=== PATIENT | female | born 1960 | race Caucasian/White ===

== ENCOUNTER 2023-10-27 17:40 | Emergency (ER) | payer SELFPAY ==
[~2023-10-27] VITALS: Ht 165.1 cm; Wt 78.0 kg
[2023-10-27 17:41] VITALS: TEMP 96.5
[2023-10-27] MEDS: methocarbamoL 500 MG TAB PO ONE (20:41)
[2023-10-27] MEDS: predniSONE 20 MG TAB PO ONE (20:41)
[2023-10-27] MEDS: KETOROLAC 60MG 2ML VIAL IM ONE (20:42)
[2023-10-27] MEDS ORDERED: PRED20TA PO (21:29)
[2023-10-27] MEDS ORDERED: IBUP-1022 PO (21:29)
[2023-10-27] MEDS ORDERED: METH-1164 PO (21:29)
[2023-10-27 21:36] VITALS: BP 134/59; O2SAT 96
== END 2023-10-27 21:37 | disposition home or self-care (01) ==
LOC: M ED 17:40
DX: M54.42 Lumbago with sciatica, left side (principal); E11.9 Type 2 diabetes mellitus without complications; I10 Essential (primary) hypertension; E78.5 Hyperlipidemia, unspecified; Z88.0 Allergy status to penicillin; Z79.1 Long term (current) use of non-steroidal anti-inflammatories (NSAID); Z79.52 Long term (current) use of systemic steroids; Z79.899 Other long term (current) drug therapy
CPT/HCPCS: 72110; 73502; 96372; 99283; J1885; J7512

== ENCOUNTER 2023-12-18 09:25 | Inpatient (IN) | payer MEDICAID ==
[~2023-12-18] VITALS: Ht 162.6 cm; Wt 81.3 kg
[~2023-12-18 09:25] MED LIST: IBUP-1022 PO; METH-1164 PO; PRED20TA PO
[2023-12-18] MEDS: ONDANSETRON 4MG 2ML VIAL IV ONE (09:39)
[2023-12-18] MEDS: MORPHINE 4 MG/ML 1ML VIAL IV PRN (09:40)
[2023-12-18 10:01] LABS: HEMATOCRIT 35.6 % (36.0-47.0); HEMOGLOBIN 11.1 g/dl (12.0-15.5); MEAN CORPUSCULAR HGB CONC 31.2 g/dl (32.0-36.5); MEAN CORPUSCULAR VOLUME 73.7 fl (80.0-96.0); PLATELET COUNT, AUTOMATED 187 10^3/uL (150-450); RED BLOOD COUNT 4.83 10^6/uL (4.00-5.40); WHITE BLOOD COUNT 6.9 10^3/uL (4.0-10.0)
[2023-12-18 10:13] LABS: INR 0.96; PROTHROMBIN TIME 13.1 SECONDS (12.5-14.5)
[2023-12-18 10:25] LABS: BLOOD UREA NITROGEN 29 MG/DL (9-23); CALCIUM LEVEL 10.4 MG/DL (8.3-10.6); CARBON DIOXIDE LEVEL 28 MMOL/L (20-31); CHLORIDE LEVEL 106 MMOL/L (98-107); CREATININE FOR GFR 0.83 MG/DL (0.55-1.30); GLOMERULAR FILTRATION RATE > 60.0 (>45); GLUCOSE, FASTING 142 MG/DL (74-106); POTASSIUM SERUM 3.7 MMOL/L (3.5-5.1); SODIUM LEVEL 140 MMOL/L (136-145)
[2023-12-18] MEDS ORDERED: DEXTROSE 50% 50ML SYRINGE IV PRN (10:50)
[2023-12-18] MEDS ORDERED: GLUCAGON INJ 1MG VIAL SC PRN (10:50)
[2023-12-18] MEDS ORDERED: GLUCOSE 4 GM CHEW PO PRN (10:50)
[2023-12-18] MEDS ORDERED: NALOXONE INJ 0.4MG/1ML VIAL IV PRN (10:50)
[2023-12-18] MEDS ORDERED: ONDANSETRON 4MG 2ML VIAL IV PRN (10:50)
[2023-12-18] MEDS ORDERED: METF-839 PO (11:09)
[2023-12-18] MEDS ORDERED: TRIA37.577 PO (11:09)
[2023-12-18] MEDS ORDERED: FOLI1TAB11 PO (11:09)
[2023-12-18] MEDS ORDERED: LISI40TA4 PO (11:09)
[2023-12-18] MEDS ORDERED: HYDR-3363 PO (11:09)
[2023-12-18] MEDS ORDERED: FLUO-365 PO (11:09)
[2023-12-18] MEDS ORDERED: CETI-24 PO (11:09)
[2023-12-18] MEDS ORDERED: SIMV40TA20 PO (11:09)
[2023-12-18] MEDS ORDERED: FLUO40CA PO (11:09)
[2023-12-18] MEDS ORDERED: ROPI5TAB19 PO (11:09)
[2023-12-18] MEDS ORDERED: AMLO1TAB24 PO (11:09)
[2023-12-18] MEDS: KETOROLAC 30 MG/ML 1ML VIAL IV ONE (11:10)
[2023-12-18] MEDS: MORPHINE 10 MG/ML 1ML VIAL IV PRN (11:11)
[2023-12-18] MEDS ORDERED: HOME MED LIST COMPLETE! XX SCH (11:15)
[2023-12-18] MEDS: NS 1,000 ML IV SCH (11:20)
[2023-12-18] MEDS: ACETAMINOPHEN *IV* 1,000 MG in IV 1 EA IV ONE (11:20)
[2023-12-18 12:00] VITALS: BP 138/82; TEMP 97.7; O2SAT 94
[2023-12-18 19:56] VITALS: BP 120/65; TEMP 97.7; O2SAT 94
[2023-12-18] MEDS: INSULIN LISPRO (NovoLOG) PER UNIT SC SCH (20:23)
[2023-12-18] MEDS: RAMELTEON 8 MG TAB (ROZEREM) PO ONE (21:47)
[2023-12-19 03:51] VITALS: BP 110/62; TEMP 97.9; O2SAT 90
[2023-12-19 06:11] LABS: BASO % 0.5 % (0.0-1.0); EOS # 0.2 10^3/uL (0.0-0.5); EOS % 1.9 % (0.0-3.0); HEMATOCRIT 30.2 % (36.0-47.0); LYMPH # 0.9 10^3/uL (1.5-5.0); LYMPH % 11.3 % (24.0-44.0); MEAN CORPUSCULAR HEMOGLOBIN 22.7 pg (27.0-33.0); MEAN CORPUSCULAR HGB CONC 30.1 g/dl (32.0-36.5); MEAN CORPUSCULAR VOLUME 75.3 fl (80.0-96.0); MONO # 0.6 10^3/uL (0.0-0.8); MONO % 7.3 % (2.0-8.0); NEUTROPHILS # 6.1 10^3/uL (1.5-8.5); NEUTROPHILS % 78.7 % (36.0-66.0); PLATELET COUNT, AUTOMATED 135 10^3/uL (150-450); RED BLOOD COUNT 4.01 10^6/uL (4.00-5.40); WHITE BLOOD COUNT 7.7 10^3/uL (4.0-10.0)
[2023-12-19 06:15] LABS: HEMOGLOBIN 9.1 g/dl (12.0-15.5)
[2023-12-19 06:40] LABS: HEMOGLOBIN A1c 5.8 % (4.0-6.0); THYROID STIMULATING HORMONE 1.129 uIU/ML (0.55-4.78); THYROXINE (T4) 10.5 UG/DL (4.5-10.9)
[2023-12-19 06:46] LABS: BLOOD UREA NITROGEN 23 MG/DL (9-23); CARBON DIOXIDE LEVEL 30 MMOL/L (20-31); CHLORIDE LEVEL 103 MMOL/L (98-107); CHOLESTEROL LEVEL 136 MG/DL (<200); CHOLESTEROL RISK RATIO 2.65 (<5); CREATININE FOR GFR 0.81 MG/DL (0.55-1.30); GLOMERULAR FILTRATION RATE > 60.0 (>45); GLUCOSE, FASTING 126 MG/DL (74-106); HDL CHOLESTEROL 51.3 MG/DL (>40); LDL CHOLESTEROL 65.1 MG/DL (<100); NON-HDL-C 84.7 MG/DL; POTASSIUM SERUM 3.8 MMOL/L (3.5-5.1); SODIUM LEVEL 139 MMOL/L (136-145); T UPTAKE 37.9 % (22.5-37.0); TRIGLYCERIDES LEVEL 98 MG/DL (<150)
[2023-12-19] MEDS: PERCOCET 5MG/325MG TAB PO ONE (07:29)
[2023-12-19] MEDS: INSULIN LISPRO (NovoLOG) PER UNIT SC SCH (07:29)
[2023-12-19] MEDS: NS 1,000 ML IV SCH ×2 (07:34→22:15)
[2023-12-19 12:00] VITALS: BP 114/67; TEMP 97.2; O2SAT 97
[2023-12-19] MEDS ORDERED: PERCOCET 5MG/325MG TAB PO PRN (16:00)
[2023-12-19] MEDS: ceFAZolin 2 GM/D5W 50 ML IV BAG As Ordered ONE (17:40)
[2023-12-19] MEDS: TRANEXAMIC ACID 100 MG/ML 10ML VIAL As Ordered ONE (17:49)
[2023-12-19] MEDS: VANCOMYCIN 1000MG/20ML VIAL As Ordered ONE (18:36)
[2023-12-19] MEDS ORDERED: oxyCODONE 5MG TAB PO PRN (22:15)
[2023-12-19] MEDS ORDERED: fentaNYL 100 MCG/2 ML INJECTION IV PRN (22:15)
[2023-12-19] MEDS ORDERED: ONDANSETRON 4MG 2ML VIAL IV PRN (22:15)
[2023-12-19 23:25] LABS: HEMATOCRIT 25.5 % (36.0-47.0); HEMOGLOBIN 7.8 g/dl (12.0-15.5); MEAN CORPUSCULAR HEMOGLOBIN 23.4 pg (27.0-33.0); MEAN CORPUSCULAR HGB CONC 30.6 g/dl (32.0-36.5); MEAN CORPUSCULAR VOLUME 76.6 fl (80.0-96.0); PLATELET COUNT, AUTOMATED 120 10^3/uL (150-450); RED BLOOD COUNT 3.33 10^6/uL (4.00-5.40); WHITE BLOOD COUNT 8.6 10^3/uL (4.0-10.0)
[2023-12-19] MEDS: HYDROMORPHONE HCL 0.5 MG/ 0.5 ML SYRINGE IV PRN (23:25)
[2023-12-19 23:50] VITALS: BP_SYST 107; BP_DIAS 54; BP_DIAS 56; TEMP 97.5; O2SAT 94
[2023-12-20] VITALS (14 sets, daily range): BP systolic 90–122; BP diastolic 42–99; TEMP 97–97.9; O2SAT 88–98
[2023-12-20] MEDS: LR 1,000 ML IV SCH (00:58)
[2023-12-20] MEDS: PERCOCET 5MG/325MG TAB PO PRN (01:41)
[2023-12-20] MEDS: NS 500 ML IV ONE (05:18)
[2023-12-20] MEDS: ASPIRIN 81MG ENTERIC TABLET PO SCH (08:32)
[2023-12-20] MEDS ORDERED: oxyCODONE 5MG TAB PO PRN ×2 (08:55)
[2023-12-20] MEDS ORDERED: FLUoxetine 20MG CAP PO SCH (09:00)
[2023-12-20] MEDS: ACETAMINOPHEN 500 MG TAB PO SCH (10:02)
[2023-12-20] MEDS: SENOKOT S TAB PO SCH (10:03)
[2023-12-20] MEDS: FLUoxetine 20MG CAP PO SCH (10:03)
[2023-12-20] MEDS: CETIRIZINE (ZyrTEC) 10 MG TAB PO SCH (10:03)
[2023-12-20] MEDS: FOLIC ACID 1MG TAB PO SCH (10:03)
[2023-12-20] MEDS: MIRALAX *UNIT DOSE* 17GM PACKET PO SCH (10:04)
[2023-12-20] MEDS: KETOROLAC 30 MG/ML 1ML VIAL IV SCH (11:12)
[2023-12-20 14:37] LABS: HEMATOCRIT 27.2 % (36.0-47.0); HEMOGLOBIN 8.7 g/dl (12.0-15.5); MEAN CORPUSCULAR HEMOGLOBIN 24.7 pg (27.0-33.0); MEAN CORPUSCULAR VOLUME 77.3 fl (80.0-96.0); PLATELET COUNT, AUTOMATED 108 10^3/uL (150-450); RED BLOOD COUNT 3.52 10^6/uL (4.00-5.40); WHITE BLOOD COUNT 6.6 10^3/uL (4.0-10.0)
[2023-12-20] MEDS: rOPINIRole 0.25 MG TAB(REQUIP) PO SCH (21:12)
[2023-12-20] MEDS: SIMVASTATIN 40 MG TAB PO SCH (21:13)
[2023-12-21 00:32] VITALS: BP 103/53; TEMP 97; O2SAT 98
[2023-12-21 05:18] VITALS: BP 107/53; TEMP 97.3; O2SAT 98
[2023-12-21 06:36] LABS: BASO % 0.3 % (0.0-1.0); EOS # 0.3 10^3/uL (0.0-0.5); EOS % 4.6 % (0.0-3.0); HEMATOCRIT 25.9 % (36.0-47.0); HEMOGLOBIN 8.1 g/dl (12.0-15.5); LYMPH # 0.8 10^3/uL (1.5-5.0); LYMPH % 12.3 % (24.0-44.0); MEAN CORPUSCULAR HEMOGLOBIN 23.9 pg (27.0-33.0); MEAN CORPUSCULAR HGB CONC 31.3 g/dl (32.0-36.5); MEAN CORPUSCULAR VOLUME 76.4 fl (80.0-96.0); MONO # 0.5 10^3/uL (0.0-0.8); MONO % 7.6 % (2.0-8.0); NEUTROPHILS # 4.9 10^3/uL (1.5-8.5); NEUTROPHILS % 74.7 % (36.0-66.0); PLATELET COUNT, AUTOMATED 114 10^3/uL (150-450); RED BLOOD COUNT 3.39 10^6/uL (4.00-5.40); WHITE BLOOD COUNT 6.6 10^3/uL (4.0-10.0)
[2023-12-21 06:59] LABS: BLOOD UREA NITROGEN 21 MG/DL (9-23); CALCIUM LEVEL 9.1 MG/DL (8.3-10.6); CARBON DIOXIDE LEVEL 29 MMOL/L (20-31); CHLORIDE LEVEL 107 MMOL/L (98-107); CREATININE FOR GFR 0.71 MG/DL (0.55-1.30); GLOMERULAR FILTRATION RATE > 60.0 (>45); GLUCOSE, FASTING 126 MG/DL (74-106); SODIUM LEVEL 141 MMOL/L (136-145)
[2023-12-21] MEDS: FUROSEMIDE 40MG/4ML VIAL IV ONE (08:00)
[2023-12-21 11:40] VITALS: BP 130/72; TEMP 97.5; O2SAT 97
[2023-12-21 19:58] VITALS: BP 143/76; TEMP 96.8; O2SAT 91
[2023-12-22 04:00] VITALS: BP 147/75; TEMP 97.3; O2SAT 93
[2023-12-22 06:04] LABS: BASO % 0.5 % (0.0-1.0); EOS # 0.2 10^3/uL (0.0-0.5); EOS % 3.2 % (0.0-3.0); HEMATOCRIT 28.2 % (36.0-47.0); HEMOGLOBIN 8.9 g/dl (12.0-15.5); LYMPH # 0.9 10^3/uL (1.5-5.0); LYMPH % 14.1 % (24.0-44.0); MEAN CORPUSCULAR HEMOGLOBIN 24.3 pg (27.0-33.0); MEAN CORPUSCULAR HGB CONC 31.6 g/dl (32.0-36.5); MONO # 0.4 10^3/uL (0.0-0.8); MONO % 6.6 % (2.0-8.0); NEUTROPHILS # 4.7 10^3/uL (1.5-8.5); NEUTROPHILS % 75.3 % (36.0-66.0); PLATELET COUNT, AUTOMATED 161 10^3/uL (150-450); RED BLOOD COUNT 3.66 10^6/uL (4.00-5.40); WHITE BLOOD COUNT 6.2 10^3/uL (4.0-10.0)
[2023-12-22 06:32] LABS: BLOOD UREA NITROGEN 24 MG/DL (9-23); CALCIUM LEVEL 9.4 MG/DL (8.3-10.6); CARBON DIOXIDE LEVEL 30 MMOL/L (20-31); CHLORIDE LEVEL 106 MMOL/L (98-107); CREATININE FOR GFR 0.68 MG/DL (0.55-1.30); GLOMERULAR FILTRATION RATE > 60.0 (>45); GLUCOSE, FASTING 126 MG/DL (74-106); POTASSIUM SERUM 3.7 MMOL/L (3.5-5.1); SODIUM LEVEL 143 MMOL/L (136-145)
[2023-12-22 12:00] VITALS: BP 121/64; TEMP 97.6; O2SAT 97
[2023-12-22] MEDS ORDERED: SENN-52 PO (15:25)
[2023-12-22] MEDS ORDERED: ASPI81TAEC PO (15:25)
[2023-12-22] MEDS ORDERED: OXYC-517 PO (15:25)
[2023-12-22] MEDS ORDERED: NAPR-1405 PO (15:25)
[2023-12-22] MEDS ORDERED: MIRA33506 PO (15:25)
[2023-12-22] MEDS ORDERED: ACET-683 PO (15:25)
[2023-12-22] MEDS: BISACODYL 10MG SUPP PR ONE (15:49)
== END 2023-12-22 16:00 | DRG 308 ==
LOC: M ED 09:25 → EDBD 09:25 → M ED INP 10:44 → M MS5PR 12:00
PROVIDERS: ADMIT General Practice; ATTEND Internal Medicine Nephrology
PROC: 0QS604Z Reposition Right Upper Femur with Internal Fixation Device, Open Approach (ICD-10-PCS; principal; 2023-12-18)
PROC: 30233N1 Transfusion of Nonautologous Red Blood Cells into Peripheral Vein, Percutaneous Approach (ICD-10-PCS; 2023-12-19)
DX: S72.331A Displaced oblique fracture of shaft of right femur, initial encounter for closed fracture (principal); D69.6 Thrombocytopenia, unspecified; M97.11XA Periprosthetic fracture around internal prosthetic right knee joint, initial encounter; M41.9 Scoliosis, unspecified; I10 Essential (primary) hypertension; E11.9 Type 2 diabetes mellitus without complications; D62 Acute posthemorrhagic anemia; F17.290 Nicotine dependence, other tobacco product, uncomplicated; W18.09XA Striking against other object with subsequent fall, initial encounter; Y92.018 Other place in single-family (private) house as the place of occurrence of the external cause; Y93.89 Activity, other specified; Y99.8 Other external cause status; E78.5 Hyperlipidemia, unspecified; G25.81 Restless legs syndrome; Z96.651 Presence of right artificial knee joint; Z79.84 Long term (current) use of oral hypoglycemic drugs; Z79.899 Other long term (current) drug therapy; Z88.0 Allergy status to penicillin

== ENCOUNTER 2023-12-22 15:41 | Inpatient (IN) | payer MEDICAID ==
[~2023-12-22] VITALS: Ht 162.6 cm; Wt 81.5 kg
[~2023-12-22 15:41] MED LIST changes: +ACET-683 PO; +ACETAMINOPHEN 1000MG/100ML IV BAG As Ordered ONE; +AMLO1TAB24 PO; +ASPI81TAEC PO; +CETI-24 PO; +FLUO-365 PO; +FLUO40CA PO; +FOLI1TAB11 PO; +GLYCOPYRROLATE INJ 0.2 MG/ML 2 ML VIAL As Ordered ONE; +HYDR-3363 PO; +HYDROmorphone HCL 2MG/ML 1ML VIAL As Ordered ONE; +KETOROLAC 60MG 2ML VIAL As Ordered ONE; +LABETALOL 100MG/20ML VIAL As Ordered ONE; +LIDOCAINE 2% 100MG/5ML SDV (FOR ANES.) As Ordered ONE; +LISI40TA4 PO; +METF-839 PO; +MIDAZOLAM INJ 2MG/2ML VIAL As Ordered ONE; +MIRA33506 PO; +NAPR-1405 PO; +ONDANSETRON 4MG 2ML VIAL As Ordered ONE; +OXYC-517 PO; +PHENYLephrine 500MCG 5ML (100MCG/ML) SYRINGE As Ordered ONE; +ROCURONIUM BROMIDE 50MG/5ML VIAL As Ordered ONE; +ROPI5TAB19 PO; +SENN-52 PO; +SIMV40TA20 PO; +SUGAMMADEX SODIUM 500 MG/5 ML VIAL (BRIDION) As Ordered ONE; +TRIA37.577 PO; +ePHEDrine SULFATE 25 MG/5 ML(5MG/ML) SYRINGE As Ordered ONE; +fentaNYL 100 MCG/2 ML INJECTION As Ordered ONE; +propofoL 200 MG/20 ML VIAL As Ordered ONE
[2023-12-22 16:00] VITALS: BP 164/78; TEMP 97.6; O2SAT 99
[2023-12-22] MEDS ORDERED: IBUPROFEN 400MG TAB PO PRN (16:20)
[2023-12-22 20:30] VITALS: BP 155/70; TEMP 97.6; O2SAT 96
[2023-12-22] MEDS: ACETAMINOPHEN 500 MG TAB PO SCH (20:50)
[2023-12-22] MEDS: SENOKOT S TAB PO SCH (20:50)
[2023-12-22] MEDS: SIMVASTATIN 40 MG TAB PO SCH (20:50)
[2023-12-22] MEDS: rOPINIRole 0.25 MG TAB(REQUIP) PO SCH (20:50)
[2023-12-22] MEDS: ASPIRIN 81MG ENTERIC TABLET PO SCH (20:51)
[2023-12-22] MEDS ORDERED: HOME MED LIST COMPLETE! XX SCH (21:05)
[2023-12-22] MEDS: NAPROXEN 250 MG TAB PO SCH (22:07)
[2023-12-22] MEDS: metFORMIN (GLUCOPHAGE) 500MG TAB PO SCH (22:08)
[2023-12-23 04:00] VITALS: BP 156/66; TEMP 97.6; O2SAT 96
[2023-12-23] MEDS: amLODIPine 5 MG TAB PO SCH (07:33)
[2023-12-23] MEDS: FOLIC ACID 1MG TAB PO SCH (07:33)
[2023-12-23] MEDS: DYAZIDE 37.5/25 CAP (TRIAM/HCTZ) PO SCH (07:34)
[2023-12-23] MEDS: FLUoxetine 20MG CAP PO SCH (07:34)
[2023-12-23] MEDS: CETIRIZINE (ZyrTEC) 10 MG TAB PO SCH (07:35)
[2023-12-23] MEDS: MIRALAX *UNIT DOSE* 17GM PACKET PO SCH (07:38)
[2023-12-23 12:00] VITALS: BP 164/78; TEMP 97.8; O2SAT 99
[2023-12-23] MEDS: ACYCLOVIR 200 MG CAPSULE PO SCH (16:12)
[2023-12-23 20:00] VITALS: BP 166/77; TEMP 97; O2SAT 97
[2023-12-23] MEDS: oxyCODONE 5MG TAB PO PRN (20:18)
[2023-12-24 03:30] VITALS: BP 160/80; TEMP 96.2; O2SAT 99
[2023-12-24] MEDS: oxyCODONE 5MG TAB PO PRN (03:32)
[2023-12-24 04:00] VITALS: BP 156/70
[2023-12-24 12:00] VITALS: BP 147/73; TEMP 96.3; O2SAT 96
[2023-12-24 20:00] VITALS: BP 150/72; TEMP 97.4; O2SAT 97
[2023-12-25 04:00] VITALS: BP 154/69; TEMP 96.1; O2SAT 95
[2023-12-25 12:00] VITALS: BP 150/67; TEMP 97; O2SAT 96
[2023-12-25] MEDS: ONDANSETRON 4MG TAB PO PRN (16:53)
[2023-12-25 19:41] VITALS: BP 137/65; TEMP 97.4; O2SAT 94
[2023-12-26 04:05] VITALS: BP 141/63; TEMP 96.9; O2SAT 94
[2023-12-26 12:00] VITALS: BP 141/65; TEMP 96.9; O2SAT 97
[2023-12-26 20:17] VITALS: BP 140/65; TEMP 96.7; O2SAT 95
[2023-12-26] MEDS: DOCUSATE SODIUM 100MG CAPSULE PO SCH (20:30)
[2023-12-27 04:58] VITALS: BP 113/59; TEMP 96.4; O2SAT 97
[2023-12-27 06:33] LABS: BASO % 0.5 % (0.0-1.0); EOS # 0.2 10^3/uL (0.0-0.5); EOS % 4.1 % (0.0-3.0); HEMOGLOBIN 8.3 g/dl (12.0-15.5); LYMPH # 1.2 10^3/uL (1.5-5.0); MEAN CORPUSCULAR HEMOGLOBIN 24.1 pg (27.0-33.0); MEAN CORPUSCULAR HGB CONC 30.7 g/dl (32.0-36.5); MEAN CORPUSCULAR VOLUME 78.3 fl (80.0-96.0); MONO # 0.6 10^3/uL (0.0-0.8); MONO % 11.5 % (2.0-8.0); NEUTROPHILS # 3.4 10^3/uL (1.5-8.5); NEUTROPHILS % 60.1 % (36.0-66.0); PLATELET COUNT, AUTOMATED 258 10^3/uL (150-450); RED BLOOD COUNT 3.45 10^6/uL (4.00-5.40); WHITE BLOOD COUNT 5.6 10^3/uL (4.0-10.0)
[2023-12-27] MEDS: PANTOPRAZOLE 20 MG TAB PO SCH (06:37)
[2023-12-27 06:38] LABS: BLOOD UREA NITROGEN 16 MG/DL (9-23); CALCIUM LEVEL 9.3 MG/DL (8.3-10.6); CARBON DIOXIDE LEVEL 31 MMOL/L (20-31); CHLORIDE LEVEL 105 MMOL/L (98-107); GLOMERULAR FILTRATION RATE > 60.0 (>45); GLUCOSE, FASTING 95 MG/DL (74-106); SODIUM LEVEL 139 MMOL/L (136-145)
[2023-12-27] MEDS: SENNA 8.6 MG TAB (SENOKOT) PO SCH (08:59)
[2023-12-27 12:00] VITALS: BP 136/60; TEMP 97.4; O2SAT 98
[2023-12-27 19:41] VITALS: BP 131/63; TEMP 98.5; O2SAT 96
[2023-12-28] MEDS: RAMELTEON 8 MG TAB (ROZEREM) PO ONE (00:24)
[2023-12-28 04:00] VITALS: BP 120/58; TEMP 97.3; O2SAT 98
[2023-12-28 12:00] VITALS: BP 122/58; TEMP 97.1; O2SAT 98
[2023-12-28 20:00] VITALS: BP 128/58; TEMP 97.1; O2SAT 97
[2023-12-28] MEDS: RAMELTEON 8 MG TAB (ROZEREM) PO PRN (22:29)
[2023-12-29 04:00] VITALS: BP 117/64; TEMP 96.7; O2SAT 97
[2023-12-29] MEDS ORDERED: LISI20TA33 PO ×3 (10:07→11:22)
[2023-12-29] MEDS ORDERED: RAME8TAB2 PO ×2 (10:07→11:22)
[2023-12-29] MEDS ORDERED: OXYC-517 PO ×4 (10:07→12:18)
[2023-12-29] MEDS ORDERED: SIMV40TA20 PO ×2 (10:07→11:11)
[2023-12-29] MEDS ORDERED: ROPI5TAB19 PO ×2 (10:07→11:11)
[2023-12-29] MEDS ORDERED: METF-839 PO (10:07)
[2023-12-29] MEDS ORDERED: HYDR-3363 PO ×2 (10:07→11:11)
[2023-12-29] MEDS ORDERED: AMLO1TAB24 PO ×3 (10:07→11:11)
[2023-12-29] MEDS ORDERED: PANT20TA51 PO ×2 (10:07→11:22)
[2023-12-29] MEDS ORDERED: ROZE8TAB16 PO (11:11)
[2023-12-29] MEDS ORDERED: PROT1TAB2 PO (11:11)
[2023-12-29] MEDS ORDERED: METF500T13 PO (11:11)
[2023-12-29] MEDS ORDERED: ASPI81CH33 PO (11:25)
[2023-12-29 12:00] VITALS: BP 122/70; TEMP 97.2; O2SAT 97
[2023-12-29 20:00] VITALS: BP 119/56; TEMP 97.6; O2SAT 96
[2023-12-30 04:00] VITALS: BP 136/62; TEMP 97.1; O2SAT 99
[2023-12-30 07:55] VITALS: BP 136/62; TEMP 97.1; O2SAT 99
[2023-12-30 08:43] VITALS: BP 133/62
[2023-12-30 12:00] VITALS: BP 125/71; TEMP 97; O2SAT 96
== END 2023-12-30 15:15 | disposition home or self-care (01) | DRG 862 ==
LOC: M PM&R 16:00
PROVIDERS: ADMIT Physical Medicine & Rehabilitation; ATTEND Physical Medicine & Rehabilitation
DX: S72.331D Displaced oblique fracture of shaft of right femur, subsequent encounter for closed fracture with routine healing (principal); M97.11XD Periprosthetic fracture around internal prosthetic right knee joint, subsequent encounter; E11.9 Type 2 diabetes mellitus without complications; I10 Essential (primary) hypertension; E78.5 Hyperlipidemia, unspecified; G25.81 Restless legs syndrome; F41.9 Anxiety disorder, unspecified; F32.A Depression, unspecified; F43.10 Post-traumatic stress disorder, unspecified; B00.1 Herpesviral vesicular dermatitis; M41.9 Scoliosis, unspecified; F17.290 Nicotine dependence, other tobacco product, uncomplicated; M48.00 Spinal stenosis, site unspecified; Z74.1 Need for assistance with personal care; Z74.09 Other reduced mobility; Z96.651 Presence of right artificial knee joint; Z98.1 Arthrodesis status; Z79.84 Long term (current) use of oral hypoglycemic drugs; Z79.82 Long term (current) use of aspirin; Z79.899 Other long term (current) drug therapy; Z88.0 Allergy status to penicillin; K59.00 Constipation, unspecified

== ENCOUNTER → 2024-01-05 | Outpatient (CLI) | payer MEDICAID ==
[~2024-01-05] MED LIST changes: -ACETAMINOPHEN 1000MG/100ML IV BAG As Ordered ONE; +ASPI81CH33 PO; -GLYCOPYRROLATE INJ 0.2 MG/ML 2 ML VIAL As Ordered ONE; -HYDROmorphone HCL 2MG/ML 1ML VIAL As Ordered ONE; -KETOROLAC 60MG 2ML VIAL As Ordered ONE; -LABETALOL 100MG/20ML VIAL As Ordered ONE; -LIDOCAINE 2% 100MG/5ML SDV (FOR ANES.) As Ordered ONE; +LISI20TA33 PO; +METF500T13 PO; -MIDAZOLAM INJ 2MG/2ML VIAL As Ordered ONE; -ONDANSETRON 4MG 2ML VIAL As Ordered ONE; +PANT20TA51 PO; -PHENYLephrine 500MCG 5ML (100MCG/ML) SYRINGE As Ordered ONE; +PROT1TAB2 PO; +RAME8TAB2 PO; -ROCURONIUM BROMIDE 50MG/5ML VIAL As Ordered ONE; +ROZE8TAB16 PO; -SUGAMMADEX SODIUM 500 MG/5 ML VIAL (BRIDION) As Ordered ONE; -ePHEDrine SULFATE 25 MG/5 ML(5MG/ML) SYRINGE As Ordered ONE; -fentaNYL 100 MCG/2 ML INJECTION As Ordered ONE; -propofoL 200 MG/20 ML VIAL As Ordered ONE
== END ==
LOC: M SOG 07:52
PROVIDERS: ATTEND Physician Assistant
DX: S72.401A Unspecified fracture of lower end of right femur, initial encounter for closed fracture (principal); W18.30XA Fall on same level, unspecified, initial encounter; Y92.009 Unspecified place in unspecified non-institutional (private) residence as the place of occurrence of the external cause

== ENCOUNTER → 2024-02-17 | Outpatient (CLI) | payer OTHER ==
[2024-02-17 13:17] LABS: HEMATOCRIT 27.3 % (36.0-47.0); HEMOGLOBIN 7.5 g/dl (12.0-15.5); MEAN CORPUSCULAR HEMOGLOBIN 19.5 pg (27.0-33.0); MEAN CORPUSCULAR HGB CONC 27.5 g/dl (32.0-36.5); MEAN CORPUSCULAR VOLUME 71.1 fl (80.0-96.0); PLATELET COUNT, AUTOMATED 164 10^3/uL (150-450); RED BLOOD COUNT 3.84 10^6/uL (4.00-5.40); WHITE BLOOD COUNT 4.1 10^3/uL (4.0-10.0)
[2024-02-17 13:18] LABS: CPK CREATINE PHOSPHOKINASE 29 U/L (34-145)
[2024-02-17 13:19] LABS: ALBUMIN 3.3 G/DL (3.2-5.2); ALKALINE PHOSPHATASE 126 U/L (35-104); ALT/SGPT < 9 U/L (7.0-40); AST/SGOT < 8 U/L (<34); BILIRUBIN,DIRECT < 0.1 MG/DL (<0.4); BILIRUBIN,TOTAL 0.2 MG/DL (0.3-1.2); BLOOD UREA NITROGEN 28 MG/DL (9-23); CARBON DIOXIDE LEVEL 32 MMOL/L (20-31); CHLORIDE LEVEL 105 MMOL/L (98-107); CHOLESTEROL LEVEL 162 MG/DL (<200); CHOLESTEROL RISK RATIO 2.76 (<5); CREATININE FOR GFR 0.92 MG/DL (0.55-1.30); GLOMERULAR FILTRATION RATE > 60.0 (>45); GLUCOSE, FASTING 118 MG/DL (74-106); HDL CHOLESTEROL 58.6 MG/DL (>40); NON-HDL-C 103.4 MG/DL; PHOSPHORUS LEVEL 3.7 MG/DL (2.4-5.1); POTASSIUM SERUM 4.6 MMOL/L (3.5-5.1); SODIUM LEVEL 141 MMOL/L (136-145); TOTAL PROTEIN 6.1 G/DL (5.7-8.2); TRIGLYCERIDES LEVEL 82 MG/DL (<150)
[2024-02-17 13:20] LABS: THYROID STIMULATING HORMONE 0.636 uIU/ML (0.55-4.78); VITAMIN B12 LEVEL 295 PG/ML (211-911)
[2024-02-17 13:58] LABS: HEMOGLOBIN A1c 5.7 % (4.0-6.0)
== END ==
LOC: M PLALAB 11:37
PROVIDERS: ATTEND Student in an Organized Health Care Education/Training Program
DX: Z00.00 Encounter for general adult medical examination without abnormal findings (principal)

== ENCOUNTER → 2024-02-23 | Outpatient (CLI) | payer OTHER | LOC: M SOG 07:50 | PROVIDERS: ATTEND Physician Assistant | DX: Z47.1 Aftercare following joint replacement surgery (principal); M79.651 Pain in right thigh ==

== ENCOUNTER → 2024-03-27 | Outpatient (CLI) | payer OTHER ==
[2024-03-27 18:29] LABS: PERCENT SATURATION 3.8 % (13.2-45.0)
[2024-03-27 18:34] LABS: FERRITIN 4.4 NG/ML (7.3-270.7)
[2024-03-27 18:40] LABS: BASO % 0.7 % (0.0-1.0); EOS # 0.1 10^3/uL (0.0-0.5); EOS % 1.2 % (0.0-3.0); HEMATOCRIT 27.8 % (36.0-47.0); LYMPH # 1.4 10^3/uL (1.5-5.0); LYMPH % 22.7 % (24.0-44.0); MEAN CORPUSCULAR HEMOGLOBIN 18.1 pg (27.0-33.0); MEAN CORPUSCULAR HGB CONC 28.8 g/dl (32.0-36.5); MEAN CORPUSCULAR VOLUME 62.9 fl (80.0-96.0); MONO # 0.5 10^3/uL (0.0-0.8); MONO % 8.8 % (2.0-8.0); NEUTROPHILS % 65.9 % (36.0-66.0); PLATELET COUNT, AUTOMATED 188 10^3/uL (150-450)
[2024-03-27 18:46] LABS: RED BLOOD COUNT 4.42 10^6/uL (4.00-5.40)
== END ==
LOC: M PLALAB 15:11
PROVIDERS: ATTEND Student in an Organized Health Care Education/Training Program
DX: D64.9 Anemia, unspecified (principal)

== ENCOUNTER → 2024-04-04 | Outpatient (REF) | payer OTHER | LOC: M SFHCPLAZ 16:59 | PROVIDERS: ATTEND Student in an Organized Health Care Education/Training Program | DX: D64.9 Anemia, unspecified (principal) ==

== ENCOUNTER 2024-04-06 11:20 | Outpatient (CLI) | payer OTHER ==
[~2024-04-06] VITALS: Ht 165.1 cm; Wt 83.0 kg
[~2024-04-06 11:20] MED LIST changes: +ALBUTEROL SULFATE 2.5MG/0.5ML INH NEB SOLN INH PRN; +EPINEPHrine INJ 1 MG/ML 1ML AMP IM PRN; +diphenhydrAMINE 50MG/ML VIAL IV PRN; +methylPREDNISolone 125MG 2ML VIAL IV PRN
[2024-04-06 11:30] VITALS: BP_SYST 128; BP_SYST 69; BP_DIAS 69; O2SAT 97
[2024-04-06] MEDS: IRON SUCROSE 500 MG in NS 250 ML OVER 4 HRS IV ONE (11:59)
[2024-04-06 13:00] VITALS: BP 134/60; O2SAT 98
[2024-04-06 14:00] VITALS: BP 129/62; O2SAT 99
[2024-04-06 16:14] VITALS: BP 137/67; O2SAT 98
== END 2024-04-06 16:25 | disposition home or self-care (01) ==
LOC: M INFU 11:20
PROVIDERS: ATTEND Student in an Organized Health Care Education/Training Program
DX: D50.9 Iron deficiency anemia, unspecified (principal); Z88.0 Allergy status to penicillin
CPT/HCPCS: 96365; 96366; J1756

== ENCOUNTER 2024-04-13 10:50 | Outpatient (CLI) | payer OTHER ==
[~2024-04-13] VITALS: Ht 165.1 cm; Wt 83.5 kg
[2024-04-13 10:55] VITALS: BP 138/67; O2SAT 100
[2024-04-13] MEDS: IRON SUCROSE 500 MG in NS 250 ML OVER 4 HRS IV ONE (11:14)
[2024-04-13 12:00] VITALS: BP 114/55; O2SAT 100
[2024-04-13 13:00] VITALS: BP 133/63; O2SAT 100
[2024-04-13 14:05] VITALS: BP 115/55; O2SAT 99
[2024-04-13 15:14] VITALS: BP 131/66; O2SAT 97
== END 2024-04-13 15:15 ==
LOC: M INFU 10:50
PROVIDERS: ATTEND Student in an Organized Health Care Education/Training Program
DX: D50.9 Iron deficiency anemia, unspecified (principal); Z88.0 Allergy status to penicillin
CPT/HCPCS: 96365; 96366; J1756

== ENCOUNTER → 2024-04-19 | Outpatient (CLI) | payer OTHER ==
[~2024-04-19] MED LIST changes: -ALBUTEROL SULFATE 2.5MG/0.5ML INH NEB SOLN INH PRN; -EPINEPHrine INJ 1 MG/ML 1ML AMP IM PRN; -diphenhydrAMINE 50MG/ML VIAL IV PRN; -methylPREDNISolone 125MG 2ML VIAL IV PRN
== END ==
LOC: M SOG 08:00
PROVIDERS: ATTEND Physician Assistant
DX: M79.651 Pain in right thigh (principal)

== ENCOUNTER → 2024-05-01 | Outpatient (CLI) | payer OTHER ==
[2024-05-01 16:08] LABS: HEMATOCRIT 39.4 % (36.0-47.0); HEMOGLOBIN 11.5 g/dl (12.0-15.5); MEAN CORPUSCULAR HEMOGLOBIN 23.1 pg (27.0-33.0); MEAN CORPUSCULAR HGB CONC 29.2 g/dl (32.0-36.5); MEAN CORPUSCULAR VOLUME 79.3 fl (80.0-96.0); PLATELET COUNT, AUTOMATED 156 10^3/uL (150-450); RED BLOOD COUNT 4.97 10^6/uL (4.00-5.40); WHITE BLOOD COUNT 5.1 10^3/uL (4.0-10.0)
[2024-05-01 16:33] LABS: CHOLESTEROL RISK RATIO 2.51 (<5); HDL CHOLESTEROL 69.9 MG/DL (>40); LDL CHOLESTEROL 87.3 MG/DL (<100); NON-HDL-C 106.1 MG/DL
[2024-05-01 16:54] LABS: HEMOGLOBIN A1c 5.1 % (4.0-6.0)
== END ==
LOC: M PLALAB 14:17
PROVIDERS: ATTEND Student in an Organized Health Care Education/Training Program
DX: E11.9 Type 2 diabetes mellitus without complications (principal); D64.9 Anemia, unspecified

== ENCOUNTER → 2024-05-18 | Outpatient (CLI) | payer OTHER ==
[~2024-05-18] MED LIST changes: +ASPI-226 PO; +B-12100010 PO; +FERR325T81 PO; +GABA-1172 PO; +PANT20TA6 PO; +TRAZ-189 PO
== END ==
LOC: M PLAIMG 14:18
PROVIDERS: ATTEND Family Medicine
DX: M25.552 Pain in left hip (principal); M16.12 Unilateral primary osteoarthritis, left hip

== ENCOUNTER 2024-05-23 10:28 | Day surgery (SDC) | payer OTHER ==
[~2024-05-23] VITALS: Ht 165.1 cm; Wt 86.4 kg
[2024-05-23] MEDS ORDERED: propofoL 200 MG/20 ML VIAL As Ordered ONE (12:11)
[2024-05-23] MEDS ORDERED: GLYCOPYRROLATE INJ 0.2 MG/ML 2 ML VIAL As Ordered ONE (12:13)
[2024-05-23] MEDS ORDERED: LIDOCAINE 2% 100MG/5ML SDV (FOR ANES.) As Ordered ONE (12:33)
[2024-05-23 12:40] VITALS: TEMP 96.8
[2024-05-23 12:57] VITALS: BP 140/69; O2SAT 100
== END 2024-05-23 13:15 | disposition home or self-care (01) ==
LOC: M OPP 10:28
PROVIDERS: ATTEND Surgery
DX: K63.5 Polyp of colon (principal); D50.9 Iron deficiency anemia, unspecified; K29.50 Unspecified chronic gastritis without bleeding; Z88.0 Allergy status to penicillin; Z79.82 Long term (current) use of aspirin; Z79.84 Long term (current) use of oral hypoglycemic drugs; Z79.899 Other long term (current) drug therapy; F17.290 Nicotine dependence, other tobacco product, uncomplicated
CPT/HCPCS: 43239; 45385; 88305; J1596

== ENCOUNTER → 2024-05-25 | Outpatient (CLI) | payer OTHER | LOC: M WHC 13:02 | PROVIDERS: ATTEND Student in an Organized Health Care Education/Training Program | DX: Z12.31 Encounter for screening mammogram for malignant neoplasm of breast (principal); M81.0 Age-related osteoporosis without current pathological fracture ==

== ENCOUNTER → 2024-06-28 | Outpatient (REF) | payer OTHER ==
[2024-06-28 16:17] LABS: BASO % 0.4 % (0.0-1.0); EOS # 0.1 10^3/uL (0.0-0.5); EOS % 1.5 % (0.0-3.0); HEMATOCRIT 39.2 % (36.0-47.0); LYMPH # 1.5 10^3/uL (1.5-5.0); LYMPH % 28.9 % (24.0-44.0); MEAN CORPUSCULAR HEMOGLOBIN 26.1 pg (27.0-33.0); MEAN CORPUSCULAR HGB CONC 30.6 g/dl (32.0-36.5); MEAN CORPUSCULAR VOLUME 85.2 fl (80.0-96.0); MONO # 0.3 10^3/uL (0.0-0.8); MONO % 6.4 % (2.0-8.0); NEUTROPHILS # 3.3 10^3/uL (1.5-8.5); NEUTROPHILS % 62.4 % (36.0-66.0); PLATELET COUNT, AUTOMATED 137 10^3/uL (150-450); WHITE BLOOD COUNT 5.3 10^3/uL (4.0-10.0)
== END ==
LOC: M LAB REF 15:21 → M LABDRAWP 15:21
PROVIDERS: ATTEND Student in an Organized Health Care Education/Training Program
DX: D50.9 Iron deficiency anemia, unspecified (principal)

== ENCOUNTER → 2024-08-31 | Outpatient (CLI) | payer OTHER ==
[~2024-08-31] MED LIST changes: +HOLTER MONITOR XX; +LISI40TA10 PO; -LISI40TA4 PO; +NITR100C3 PO; +PHEN-372 PO
== END ==
LOC: M SOG 11:15
PROVIDERS: ATTEND Neuromusculoskeletal Medicine, Sports Medicine
DX: M25.561 Pain in right knee (principal); Z98.890 Other specified postprocedural states

== ENCOUNTER → 2024-09-10 | Outpatient (CLI) | payer OTHER ==
[~2024-09-10] MED LIST changes: -IBUP-1022 PO; +IBUP600T42 PO
[2024-09-10 18:42] LABS: IRON (FE) 54 UG/DL (50-170)
[2024-09-10 18:48] LABS: BASO # 0.0 10^3/uL (0.0-0.2); BASO % 0.5 % (0.0-1.0); EOS # 0.1 10^3/uL (0.0-0.5); EOS % 1.1 % (0.0-3.0); LYMPH # 1.6 10^3/uL (1.5-5.0); LYMPH % 28.5 % (24.0-44.0); MONO # 0.4 10^3/uL (0.0-0.8); MONO % 7.0 % (2.0-8.0); NEUTROPHILS # 3.5 10^3/uL (1.5-8.5); NEUTROPHILS % 62.5 % (36.0-66.0); PLATELET COUNT, AUTOMATED 164 10^3/uL (150-450)
[2024-09-10 18:49] LABS: VITAMIN B12 LEVEL 423 PG/ML (211-911)
== END ==
LOC: M PLALAB 14:15
PROVIDERS: ATTEND Student in an Organized Health Care Education/Training Program
DX: D64.9 Anemia, unspecified (principal)

== ENCOUNTER 2024-10-05 15:40 | Emergency (ER) | payer OTHER ==
[~2024-10-05] VITALS: Ht 165.1 cm; Wt 84.1 kg
[2024-10-05 17:36] LABS: BASO # 0.0 10^3/uL (0.0-0.2); BASO % 0.6 % (0.0-1.0); EOS # 0.0 10^3/uL (0.0-0.5); EOS % 0.4 % (0.0-3.0); LYMPH # 1.4 10^3/uL (1.5-5.0); LYMPH % 20.7 % (24.0-44.0); MONO # 0.5 10^3/uL (0.0-0.8); MONO % 7.0 % (2.0-8.0); NEUTROPHILS # 4.9 10^3/uL (1.5-8.5); NEUTROPHILS % 70.9 % (36.0-66.0); PLATELET COUNT, AUTOMATED 159 10^3/uL (150-450)
[2024-10-05 17:55] LABS: KETONE, URINE AUTO RFX 1+ mg/dL (NEGATIVE); NITRITE, URINE AUTO RFX NEGATIVE (NEGATIVE); RBC, URINE AUTO RFX 0 /HPF (0-3); SQUAM EPITHELIAL CELL UR AURFX 5 /HPF (0-6); WBC, URINE AUTO RFX 2 /HPF (0-3)
[2024-10-05 17:56] LABS: LEUKOCYTE ESTERASE UR AUTO RFX TRACE (NEGATIVE)
[2024-10-05 18:11] LABS: ALT/SGPT 20.0 U/L (7.0-40); AST/SGOT 26.0 U/L (<34); CALCIUM LEVEL 10.7 MG/DL (8.3-10.6); CARBON DIOXIDE LEVEL 30.0 MMOL/L (20-31); CHLORIDE LEVEL 101.0 MMOL/L (98-107); CREATININE FOR GFR 0.99 MG/DL (0.55-1.30); GLOMERULAR FILTRATION RATE 63.7 (>45); POTASSIUM SERUM 5.2 MMOL/L (3.5-5.1); SODIUM LEVEL 143.0 MMOL/L (136-145)
[2024-10-05] MEDS ORDERED: ISOVUE-370 76% 100 ML VIAL As Ordered ONE (21:55)
[2024-10-05] MEDS: ONDANSETRON 4MG 2ML VIAL IV ONE (22:05)
[2024-10-05] MEDS: ACETAMINOPHEN *IV* 1,000 MG in IV 1 EA IV ONE (22:27)
[2024-10-06 00:05] VITALS: BP 130/71; TEMP 97.1; O2SAT 95
== END 2024-10-06 00:09 | disposition home or self-care (01) ==
LOC: M ED 15:40
DX: R11.2 Nausea with vomiting, unspecified (principal); R10.30 Lower abdominal pain, unspecified; E11.9 Type 2 diabetes mellitus without complications; I10 Essential (primary) hypertension; M54.9 Dorsalgia, unspecified; Z88.0 Allergy status to penicillin; Z79.899 Other long term (current) drug therapy; Z79.84 Long term (current) use of oral hypoglycemic drugs
CPT/HCPCS: 74177; 80048; 80076; 81001; 83690; 85025; 87086; 96374; 96375; 99284; J0131; J2405; Q9967

== ENCOUNTER → 2024-11-15 | Outpatient (CLI) | payer OTHER | LOC: M RAD 13:24 | PROVIDERS: ATTEND Student in an Organized Health Care Education/Training Program | DX: M54.50 Low back pain, unspecified (principal) ==

== ENCOUNTER → 2024-12-11 | Outpatient (CLI) | payer OTHER ==
[2024-12-11 14:26] LABS: CALCIUM LEVEL 11.7 MG/DL (8.3-10.6); CARBON DIOXIDE LEVEL 33.0 MMOL/L (20-31); CHLORIDE LEVEL 104.0 MMOL/L (98-107); CREATININE FOR GFR 0.9 MG/DL (0.55-1.30); GLOMERULAR FILTRATION RATE 71.4 (>45); POTASSIUM SERUM 4.6 MMOL/L (3.5-5.1); SODIUM LEVEL 144.0 MMOL/L (136-145)
== END ==
LOC: M PLALAB 11:11
PROVIDERS: ATTEND Internal Medicine Cardiovascular Disease
DX: Z13.220 Encounter for screening for lipoid disorders (principal)

== ENCOUNTER → 2024-12-11 | Outpatient (CLI) | payer OTHER ==
[2024-12-11 14:30] LABS: C REACTIVE PROTEIN QUANTITATIV < 0.50 MG/DL (<1.0)
[2024-12-11 14:31] LABS: ALT/SGPT 16 U/L (7.0-40); AST/SGOT 17 U/L (<34); CALCIUM LEVEL 11.6 MG/DL (8.3-10.6); CARBON DIOXIDE LEVEL 31 MMOL/L (20-31); CHLORIDE LEVEL 102 MMOL/L (98-107); CREATININE FOR GFR 0.91 MG/DL (0.55-1.30); GLOMERULAR FILTRATION RATE 70.5 (>45); POTASSIUM SERUM 4.3 MMOL/L (3.5-5.1); SODIUM LEVEL 143 MMOL/L (136-145)
[2024-12-11 14:32] LABS: VITAMIN B12 LEVEL 739 PG/ML (211-911)
== END ==
LOC: M PLALAB 11:08
PROVIDERS: ATTEND Student in an Organized Health Care Education/Training Program
DX: D64.9 Anemia, unspecified (principal); M25.561 Pain in right knee

== ENCOUNTER → 2024-12-20 | Outpatient (CLI) | payer OTHER | LOC: M PLALAB 14:34 | PROVIDERS: ATTEND Nurse Practitioner Family | DX: Z79.891 Long term (current) use of opiate analgesic (principal) | CPT/HCPCS: 36415; 80307; G0480 ==